=== PATIENT | male | born 1955 | race Caucasian/White ===

== ENCOUNTER 2016-12-05 02:15 | Inpatient (IN) | payer OTHER ==
[2016-12-05] MEDS ORDERED: DIPH,PERTUS(ACELL)TETVAC-LF 0.5 ML VIAL IM ONE (02:18)
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
[2016-12-05 02:56] LABS: Basophils # (A) 0.1 k/uL (0-0.2); Basophils % (A) 1 %; CH 35.5; CHCM 35.1; Eosinophils # (A) 0.1 k/uL (0-0.7); Eosinophils % (A) 2 %; HCT 50.1 % (39.0-53.0); HDW 2.73; HGB 17.2 gm/dL (13.0-17.5); Luc % (Auto) 4; Lymphocytes % (A) 39 %; MCH 34.9 pg (25.0-35.0); MCHC 34.4 g/dL (31.0-37.0); MCV 101.5 fL (80.0-100.0); Macrocytosis Slight; Mean Platelet Volume 8.2; Monocytes # (A) 0.3 k/uL (0-1.0); Monocytes % (A) 5 %; Neutrophils # (A) 2.5 k/uL (1.3-7.7); Neutrophils % (A) 48 %; RBC 4.94 m/uL (4.30-5.90); WBC 5.1 k/uL (3.8-10.6); WBC (Perox) 5.07
[2016-12-05 03:08] LABS: ALT 43 U/L (21-72); AST 33 U/L (17-59); Acetaminophen <10.0 ug/mL; Alkaline Phosphatase 66 U/L (38-126); Amylase 78 U/L (30-110); Anion Gap 15 mmol/L; Blood Urea Nitrogen 8 mg/dL (9-20); Calcium 9.3 mg/dL (8.4-10.2); Carbon Dioxide 19 mmol/L (22-30); Chloride 106 mmol/L (98-107); Glucose 99 mg/dL (74-99); Magnesium 1.9 mg/dL (1.6-2.3); Non-African American GFR(MDRD) >60 (>60 ml/min/1.73 sqM); Sodium 140 mmol/L (137-145); Total Bilirubin 0.7 mg/dL (0.2-1.3)
[2016-12-05 03:15] LABS: Alcohol 220 mg/dL
[2016-12-05] MEDS ORDERED: ALBUTEROL NEBULIZED 2.5 MG/3 ML INHALATION STA (07:37)
[2016-12-05] MEDS ORDERED: ACETAMINOPHEN TAB 325 MG TAB PO PRN (15:28)
[2016-12-05] MEDS ORDERED: MAGNESIUM HYDROXIDE 2,400 MG/10 ML CUP PO PRN (15:28)
[2016-12-05] MEDS ORDERED: MAG HYDROX/AL HYDROX/SIMETH 30 ML CUP PO PRN (15:28)
[2016-12-05] MEDS: NICOTINE 14MG/24HR PATCH TRANSDERM SCH (16:16)
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
[2016-12-05 17:42] LABS: Glucose,Whole Blood 78 mg/dL (75-99)
[2016-12-05] MEDS: INSULIN LISPRO (humaLOG) 300 UNIT/3 ML VIAL SQ SCH ×2 (17:45→20:08)
[2016-12-05] MEDS: LORazepam 1 MG TAB PO PRN (18:09)
[2016-12-05] MEDS: ALBUTEROL INHALER 60 PUFF/8 GM INHALER INHALATION PRN (18:14)
[2016-12-05 19:58] LABS: Glucose,Whole Blood 244 mg/dL (75-99)
[2016-12-05 21:41] LABS: Hemoglobin A1C 5.5 % (4.2-6.1)
[2016-12-05] MEDS: SYMBICORT 80-4.5 MCG INHALER INHALATION SCH (21:51)
[2016-12-06] MEDS: LORazepam 1 MG TAB PO PRN ×2 (02:34→16:41)
[2016-12-06] MEDS: ALBUTEROL INHALER 60 PUFF/8 GM INHALER INHALATION PRN ×2 (02:36→14:00)
[2016-12-06 06:43] LABS: Glucose,Whole Blood 96 mg/dL (75-99)
[2016-12-06] MEDS: INSULIN LISPRO (humaLOG) 300 UNIT/3 ML VIAL SQ SCH ×5 (09:05→22:01)
[2016-12-06] MEDS: NICOTINE 14MG/24HR PATCH TRANSDERM SCH (09:06)
[2016-12-06] MEDS: SYMBICORT 80-4.5 MCG INHALER INHALATION SCH ×4 (09:56→20:22)
[2016-12-06 12:33] LABS: Glucose,Whole Blood 99 mg/dL (75-99)
[2016-12-06] MEDS: TIOTROPIUM 18 MCG/PUFF INHALER INHALATION SCH (13:59)
[2016-12-06] MEDS: DULoxetine HCL 60 MG CAPSULE.DR PO SCH (16:29)
[2016-12-06] MEDS: OLANZapine 5 MG TAB PO SCH ×2 (16:41→22:06)
[2016-12-06 17:36] LABS: Glucose,Whole Blood 93 mg/dL (75-99)
[2016-12-06 22:02] LABS: Glucose,Whole Blood 174 mg/dL (75-99)
[2016-12-07 06:31] LABS: Glucose,Whole Blood 97 mg/dL (75-99)
[2016-12-07] MEDS: INSULIN LISPRO (humaLOG) 300 UNIT/3 ML VIAL SQ SCH ×4 (07:42→21:40)
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
[2016-12-07] MEDS: DULoxetine HCL 60 MG CAPSULE.DR PO SCH (09:26)
[2016-12-07] MEDS: OLANZapine 5 MG TAB PO SCH ×3 (09:26→21:40)
[2016-12-07] MEDS: NICOTINE 14MG/24HR PATCH TRANSDERM SCH (09:26)
[2016-12-07] MEDS: LORazepam 1 MG TAB PO PRN (09:30)
[2016-12-07] MEDS: SYMBICORT 80-4.5 MCG INHALER INHALATION SCH ×2 (10:21→20:15)
[2016-12-07] MEDS: ALBUTEROL INHALER 60 PUFF/8 GM INHALER INHALATION PRN ×3 (10:21→20:15)
[2016-12-07] MEDS: TIOTROPIUM 18 MCG/PUFF INHALER INHALATION SCH (10:21)
[2016-12-07 12:42] LABS: Glucose,Whole Blood 78 mg/dL (75-99)
[2016-12-07 15:27] VITALS: BMI 23.7
[2016-12-07 16:10] LABS: Appearance,Urine Clear (Clear); Bilirubin,Urine Negative (Negative); Glucose,Urine (UA) Negative (Negative); Ketones,Urine Negative (Negative); Leukocyte Esterase,Urine Negative (Negative); Nitrite,Urine Negative (Negative); PH, Urine 7.5 (5.0-8.0); Protein,Urine Negative (Negative); Specific Gravity,Urine 1.008 (1.001-1.035); UA Billing (MACRO vs. MICRO) CHEM; Urobilinogen,Urine <2.0 mg/dL (<2.0)
[2016-12-07 17:58] LABS: Glucose,Whole Blood 114 mg/dL (75-99)
--- NOTE | 2016-12-07 19:57 | PN ---
DATE OF SERVICE: 12/07/2016 CHIEF COMPLAINT: The patient was admitted for depression with suicide thinking. He has hopeless feelings, excessive guilt relating to grief issues. He has multiple stressors. INTERVAL HISTORY: Patient has been doing fair. He had a quiet evening last night. He slept well. His CIWA score yesterday at 4:30 was 17. Since then it has come down. At 1:25 a.m. it was 6. At 9:27 this morning it was 8. Patient slept fair last night. He does wander around the unit. He does not interact too much with others. He has not attended groups. He says that he seems to go in his room and lie down for a little bit; as soon as he wakes up from a nap, he finds out he had just missed group. He does say he will make an effort to get to group. He feels that he is doing a little better today. He says he has a little better outlook and that he is not as hopeless and negative as he was when he came in. He has not had change in his general health. He tolerates his psychotropic medications. MENTAL STATUS: Patient sat without restlessness. Eye contact was fair. Psychomotor activity was slowed. Speech was monotone. He answered questions with brief responses. His thoughts were clear. He did not say a lot. He was not too spontaneous or interactive. His affect was blunted. It was noteworthy that a few different times he showed a little more energy and smiled some. His mood was reserved. He seemed somewhat distressed. ASSESSMENT: I will continue the current diagnoses and treatment plan. I will continue psychotropic medications the same. Patient appears to be making progress. I reviewed issues relating to Zyprexa; namely that it is indicated to help augment his antidepressant to help reduce physiologic stress response related to withdrawal as well as stress issues and also to address things like the severe grief that he seems to be struggling with. He did say that he thinks the medications are helping. We continue to look at the option for a transfer to the [facility] unit, though the patient is making progress and we may be able to stabilize him and discharge him home from this facility. I would consider that he may be able to be discharged by the end of the week. We will coordinate with outpatient resources for follow-up care. MITZI
[2016-12-07 20:07] LABS: Glucose,Whole Blood 136 mg/dL (75-99)
[2016-12-08 06:28] LABS: Glucose,Whole Blood 119 mg/dL (75-99)
[2016-12-08] MEDS: INSULIN LISPRO (humaLOG) 300 UNIT/3 ML VIAL SQ SCH ×4 (07:38→21:47)
[2016-12-08] MEDS: SYMBICORT 80-4.5 MCG INHALER INHALATION SCH ×2 (09:16→20:57)
[2016-12-08] MEDS: TIOTROPIUM 18 MCG/PUFF INHALER INHALATION SCH (09:17)
[2016-12-08] MEDS: ALBUTEROL INHALER 60 PUFF/8 GM INHALER INHALATION PRN ×3 (09:17→20:57)
[2016-12-08] MEDS: DULoxetine HCL 60 MG CAPSULE.DR PO SCH (09:35)
[2016-12-08] MEDS: OLANZapine 5 MG TAB PO SCH (09:35)
[2016-12-08] MEDS: LORazepam 1 MG TAB PO PRN (09:35)
[2016-12-08] MEDS: NICOTINE 14MG/24HR PATCH TRANSDERM SCH (09:35)
[2016-12-08 12:11] LABS: Glucose,Whole Blood 81 mg/dL (75-99)
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
[2016-12-08 16:41] LABS: Glucose,Whole Blood 132 mg/dL (75-99)
[2016-12-08 20:01] LABS: Glucose,Whole Blood 120 mg/dL (75-99)
[2016-12-08] MEDS ORDERED: OLANZapine 5 MG TAB PO SCH (21:00)
[2016-12-09 06:25] LABS: Glucose,Whole Blood 110 mg/dL (75-99)
[2016-12-09 06:44] VITALS: BP 157/77; PULSE 66; RESP 18; TEMP 98
[2016-12-09] MEDS: NICOTINE 14MG/24HR PATCH TRANSDERM SCH (09:06)
[2016-12-09] MEDS: DULoxetine HCL 60 MG CAPSULE.DR PO SCH (09:06)
[2016-12-09] MEDS: INSULIN LISPRO (humaLOG) 300 UNIT/3 ML VIAL SQ SCH ×2 (09:08→13:15)
[2016-12-09] MEDS: ALBUTEROL INHALER 60 PUFF/8 GM INHALER INHALATION PRN (09:15)
[2016-12-09] MEDS: TIOTROPIUM 18 MCG/PUFF INHALER INHALATION SCH (09:15)
[2016-12-09] MEDS: SYMBICORT 80-4.5 MCG INHALER INHALATION SCH (09:15)
[2016-12-09 13:01] LABS: Glucose,Whole Blood 105 mg/dL (75-99)
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
== END 2016-12-09 16:24 | disposition left against medical advice (07) | DRG 885 ==
LOC: EC 02:15 → 3MHU 14:17
PROVIDERS: ADMIT Psychiatry & Neurology Addiction Medicine; ATTEND Psychiatry & Neurology Addiction Medicine
PROC: 3E0234Z Introduction of Serum, Toxoid and Vaccine into Muscle, Percutaneous Approach (ICD-10-PCS; principal; 2016-12-05)
PROC: HZ2ZZZZ Detoxification Services for Substance Abuse Treatment (ICD-10-PCS; 2016-12-05)
DX: F31.9 Bipolar disorder, unspecified (principal); R45.851 Suicidal ideations; D75.1 Secondary polycythemia; E11.9 Type 2 diabetes mellitus without complications; E53.8 Deficiency of other specified B group vitamins; D75.89 Other specified diseases of blood and blood-forming organs; F10.239 Alcohol dependence with withdrawal, unspecified; T41.3X6A Underdosing of local anesthetics, initial encounter; T42.8X6A Underdosing of antiparkinsonism drugs and other central muscle-tone depressants, initial encounter; T43.216A Underdosing of selective serotonin and norepinephrine reuptake inhibitors, initial encounter; T44.3X6A Underdosing of other parasympatholytics [anticholinergics and antimuscarinics] and spasmolytics, initial encounter; T45.2X6A Underdosing of vitamins, initial encounter; T42.4X6A Underdosing of benzodiazepines, initial encounter; T48.6X6A Underdosing of antiasthmatics, initial encounter; K59.00 Constipation, unspecified; G47.9 Sleep disorder, unspecified; S01.511A Laceration without foreign body of lip, initial encounter; J44.9 Chronic obstructive pulmonary disease, unspecified; F43.10 Post-traumatic stress disorder, unspecified; R40.2410 Glasgow coma scale score 13-15, unspecified time; F41.0 Panic disorder [episodic paroxysmal anxiety]; R63.4 Abnormal weight loss; K02.9 Dental caries, unspecified; M47.816 Spondylosis without myelopathy or radiculopathy, lumbar region; F19.10 Other psychoactive substance abuse, uncomplicated; F10.229 Alcohol dependence with intoxication, unspecified; F41.9 Anxiety disorder, unspecified; R06.2 Wheezing; F17.210 Nicotine dependence, cigarettes, uncomplicated; Z87.39 Personal history of other diseases of the musculoskeletal system and connective tissue; Z65.3 Problems related to other legal circumstances; Z56.0 Unemployment, unspecified; Z63.4 Disappearance and death of family member; Z59.0 Homelessness; Z81.1 Family history of alcohol abuse and dependence; Z53.21 Procedure and treatment not carried out due to patient leaving prior to being seen by health care provider; Z23 Encounter for immunization; Z80.1 Family history of malignant neoplasm of trachea, bronchus and lung; Z91.81 History of falling; Z87.81 Personal history of (healed) traumatic fracture; Z71.6 Tobacco abuse counseling; Z71.41 Alcohol abuse counseling and surveillance of alcoholic; Z79.51 Long term (current) use of inhaled steroids; Z91.14 Patient's other noncompliance with medication regimen; Z91.19 Patient's noncompliance with other medical treatment and regimen; Y35.893A Legal intervention involving other specified means, suspect injured, initial encounter; Y90.7 Blood alcohol level of 200-239 mg/100 ml; Y92.008 Other place in unspecified non-institutional (private) residence as the place of occurrence of the external cause
CPT/HCPCS: 36415; 80053; 80306; 80320; 81003; 82075; 82150; 82607; 83036; 83520; 83690; 83735; 84443; 85025; 90715; 94640

== ENCOUNTER 2016-12-31 05:11 | Emergency (ER) | payer OTHER ==
[2016-12-31] MEDS ORDERED: LORazepam 2 MG/ML SYRINGE IM STA (05:32)
--- NOTE | 2016-12-31 05:35 | ED ---
General Adult HPI - General Source: patient, EMS, RN notes reviewed Mode of arrival: EMS Limitations: no limitations <Kuldeep Bruner - Last Filed: 12/31/16 05:47> <Mat Black - Last Filed: 12/31/16 10:31> - General Chief complaint: Psychiatric Symptoms Stated complaint: ETOH Time Seen by Provider: 12/31/16 05:25 - History of Present Illness Initial comments: This is a 61-year-old male who presents emergency Department stating he wants to kill himself. Patient states she's been drinking tonight about 4 24 ounce beers. Patient states he hurt his friends talking about him behind his back and it upset him and he couldn't stand it any longer and is just wants to end it all. Patient has no specific plan he made no attempt this evening. Patient called the [place] hotline and they called the ambulance to come get him and bring him to the hospital. Patient denies any physical complaints today. Patient denies any patient denies lightheadedness patient denies chest pain difficulty breathing [place] of breath. Patient denies any abdominal pain patient denies nausea vomiting diarrhea. (Kuldeep Bruner) - Related Data Home Medications Medication Instructions Recorded Confirmed Albuterol Inhaler [Ventolin Hfa 1 puff INHALATION RT-QID PRN 12/05/16 12/31/16 Inhaler] Budesonide-Formot 160-4.5 Mcg 2 puff INHALATION RT-BID 12/05/16 12/05/16 [Symbicort 160-4.5 Mcg Inhaler] Cyanocobalamin [Vitamin B-12] 1,000 mcg PO DAILY 12/05/16 12/05/16 DULoxetine HCL [Cymbalta] 30 mg PO DAILY 12/05/16 12/05/16 Lidocaine 5% Patch [Lidoderm 5% 1 patch TOPICAL DAILY 12/05/16 12/05/16 Patch] Melatonin 3 mg PO HS 12/05/16 12/05/16 Methocarbamol [Robaxin] 500 mg PO TID 12/05/16 12/05/16 Previous Rx's Medication Instructions Recorded DULoxetine HCL [Cymbalta] 60 mg PO DAILY cap 12/09/16 INSULIN LISPRO (humaLOG) [humaLOG 0 unit SQ ACHS vial 12/09/16 (formulary)] OLANZapine [ZyPREXA] 15 mg PO HS #90 tab 12/09/16 Allergies Allergy/AdvReac Type Severity Reaction Status Date / Time No Known Allergies Allergy Verified 12/05/16 08:58 Review of Systems ROS Other: All systems not noted in ROS Statement are negative. <Kuldeep Bruner - Last Filed: 12/31/16 05:47> ROS Other: All systems not noted in ROS Statement are negative. <Mat Black - Last Filed: 12/31/16 10:31> ROS Statement: Those systems with pertinent positive or pertinent negative responses have been documented in the HPI. 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, history of fall: [place] many years ago where he had the shakes History of Any Multi-Drug Resistant Organisms: None Reported Past Surgical History: Tonsillectomy Additional Past Surgical History / Comment(s): "left foot fx, left knee dislocation, left elbow nerve relocation." Past Psychological History: Anxiety, Bipolar, Depression, PTSD Smoking Status: Current every day smoker Past Alcohol Use History: Abuse, Daily Past Drug Use History: None Reported - Past Family History Father Family Medical History: Cancer <Kuldeep Bruner - Last Filed: 12/31/16 05:47> General Exam Limitations: no limitations <Kuldeep Bruner - Last Filed: 12/31/16 05:47> <Mat Black - Last Filed: 12/31/16 10:31> - General Exam Comments Initial Comments: GENERAL: Patient is well-developed and well-nourished. Patient is nontoxic and well- hydrated and is in no acute distress. ENT: Neck is soft and supple. No significant lymphadenopathy is noted. Oropharynx is clear. Moist mucous membranes. Neck has full range of motion without eliciting any pain. EYES: The sclera were anicteric and conjunctiva were pink and moist. Extraocular movements were intact and pupils were equal round and reactive to light. Eyelids were unremarkable. PULMONARY: Unlabored respirations. Good breath sounds bilaterally. CARDIOVASCULAR: There is a regular rate and rhythm without any murmurs gallops or rubs. ABDOMEN: Soft and nontender with normal bowel sounds. No palpable organomegaly was noted. There is no palpable pulsatile mass. SKIN: Skin is clear with no lesions or rashes and otherwise unremarkable. NEUROLOGIC: Patient is alert and oriented x3. Cranial nerves II through XII are grossly intact. Motor and sensory are also intact. Normal speech, volume and content. Symmetrical smile. MUSCULOSKELETAL: Normal extremities with adequate strength and full range of motion. No lower extremity swelling or edema. No calf tenderness. LYMPHATICS: No significant lymphadenopathy is noted PSYCHIATRIC: Patient is crying throughout the exam and states he would like to kill himself however the patient has no plan and his made no attempt this evening (Kuldeep Bruner) Medical Decision Making <Kuldeep Bruner - Last Filed: 12/31/16 05:47> <Mat Black - Last Filed: 12/31/16 10:31> - Medical Decision Making Dr. Black be taking over the care of this patient at 7 AM (Kuldeep Bruner) Patient was seen by mental health services with plans for transfer for [facility] psychiatric services. Patient reevaluated and resting comfortably in bed. Patient does admit to being depressed with suicidal thoughts with plan of cutting himself. Patient states at times he may have homicidal thoughts however will not further elaborate on this. Patient states he has not been taking his medication. Patient states she does not take care of himself as far sleeping and eating. Positive clinical certificate completed. (Mat Black) - Lab Data Lab Results 12/31/16 Range/Units 05:15 Urine Opiates Screen Detected H (NotDetected) Ur Oxycodone Screen Not Detected (NotDetected) Urine Methadone Screen Not Detected (NotDetected) Ur Propoxyphene Screen Not Detected (NotDetected) Ur Barbiturates Screen Not Detected (NotDetected) U Tricyclic Antidepress Not Detected (NotDetected) Ur Phencyclidine Scrn Not Detected (NotDetected) Ur Amphetamines Screen Not Detected (NotDetected) U Methamphetamines Scrn Not Detected (NotDetected) U Benzodiazepines Scrn Not Detected (NotDetected) Urine Cocaine Screen Not Detected (NotDetected) U Marijuana (THC) Screen Not Detected (NotDetected) Disposition <Kuldeep Bruner - Last Filed: 12/31/16 05:47> Time of Disposition: 10:31 <Mat Black - Last Filed: 12/31/16 10:31> Clinical Impression: Depression, Suicidal ideation Disposition: TRANSFER TO PSYCH HOSP/UNIT Referrals: None,Stated [Primary Care Provider] - 1-2 days
[2016-12-31] MEDS ORDERED: IPRATROPIUM-ALBUTEROL 3 ML NEB INHALATION STA (13:56)
[2016-12-31 22:44] LABS: Basophils % (A) 0 %; CH 34.8; CHCM 35.3; Eosinophils # (A) 0.1 k/uL (0-0.7); Eosinophils % (A) 2 %; HCT 48.5 % (39.0-53.0); HDW 2.83; HGB 17.3 gm/dL (13.0-17.5); Luc # (Auto) 0.15; Luc % (Auto) 3; Lymphocytes # (A) 1.5 k/uL (1.0-4.8); Lymphocytes % (A) 26 %; MCH 35.2 pg (25.0-35.0); MCHC 35.6 g/dL (31.0-37.0); Mean Platelet Volume 7.7; Monocytes # (A) 0.3 k/uL (0-1.0); Monocytes % (A) 6 %; Neutrophils # (A) 3.7 k/uL (1.3-7.7); Neutrophils % (A) 64 %; RDW 13.4 % (11.5-15.5); WBC 5.8 k/uL (3.8-10.6); WBC (Perox) 5.42
[2016-12-31 22:54] LABS: Appearance,Urine Clear (Clear); Bilirubin,Urine Negative (Negative); Glucose,Urine (UA) Negative (Negative); Ketones,Urine Negative (Negative); Leukocyte Esterase,Urine Moderate (Negative); Nitrite,Urine Negative (Negative); Particle Count 1088; Protein,Urine Negative (Negative); RBC,Urine 1 /hpf (0-5); Specific Gravity,Urine 1.013 (1.001-1.035); Squamous Epithelial Cell,Urine 1 /hpf (0-4); UA Billing (MACRO vs. MICRO) MICRO; Urobilinogen,Urine <2.0 mg/dL (<2.0); WBC,Urine 8 /hpf (0-5)
[2016-12-31 22:56] LABS: ALT 42 U/L (21-72); AST 27 U/L (17-59); Alkaline Phosphatase 75 U/L (38-126); Anion Gap 7 mmol/L; Blood Urea Nitrogen 16 mg/dL (9-20); Calcium 9.1 mg/dL (8.4-10.2); Carbon Dioxide 27 mmol/L (22-30); Chloride 104 mmol/L (98-107); Glucose 119 mg/dL (74-99); Non-African American GFR(MDRD) >60 (>60 ml/min/1.73 sqM); Potassium 4.2 mmol/L (3.5-5.1); Sodium 138 mmol/L (137-145); Total Bilirubin 0.7 mg/dL (0.2-1.3); Total Protein 6.1 g/dL (6.3-8.2)
[2017-01-01 00:37] VITALS: RESP 18
[2017-01-01 02:27] VITALS: BP 141/75; TEMP 97.7
[2017-01-01] MEDS ORDERED: IPRATROPIUM-ALBUTEROL 3 ML NEB INHALATION STA (02:41)
[2017-01-01 02:46] VITALS: PULSE 96
== END 2017-01-01 03:38 ==
LOC: EC 05:11
DX: F32.9 Major depressive disorder, single episode, unspecified (principal); J44.9 Chronic obstructive pulmonary disease, unspecified; F41.9 Anxiety disorder, unspecified; F17.200 Nicotine dependence, unspecified, uncomplicated; R45.851 Suicidal ideations; Z79.51 Long term (current) use of inhaled steroids; Z79.899 Other long term (current) drug therapy
CPT/HCPCS: 99285 ×2; 96372 ×2; 82075; 36415; 94640 ×2; 80053; 84443; 85025; 81001; 80306; J2060